=== PATIENT | male | born 1950 | race Caucasian/White ===

== ENCOUNTER 2019-08-22 12:06 | Day surgery (SDC) ==
--- NOTE | 2019-08-22 08:36 | HISTORY AND PHYSICAL ---
HISTORY OF PRESENT ILLNESS: A 68-year-old male, who has had symptoms of BPH for quite some time who came in secondary to advanced rectal cancer. He had abdominal surgery and postoperatively has not been able to void. He has failed several voiding trials. He feels strongly about intervention as the catheter is very bothersome to him. He underwent cystoscopy on 08/19/2019 which revealed significant bilobar prostatic hypertrophy. He wants to proceed with GreenLight transurethral vaporization of prostate. PAST MEDICAL HISTORY: Hypertension, rectal cancer. PAST SURGICAL HISTORY: Diverting loop colostomy, port placement. ALLERGIES: No known drug allergies. HOME MEDICATIONS: Amlodipine, lisinopril, omeprazole, iron. SOCIAL HISTORY: Former alcohol use. Continues to smoke, denies illicit drug use. FAMILY HISTORY: Negative for malignancies. PHYSICAL EXAMINATION: GENERAL: No acute distress. HEENT: Normocephalic, atraumatic. ABDOMEN: Scaphoid nontender. Ileostomy in place. : Hunter catheter in place draining straw-colored urine. ASSESSMENT/PLAN: A 68-year-old male with BPH who is in retention and has failed several voiding trials. He feels strongly about transurethral vaporization of prostate. He was counseled on the risks of the procedure including, but not limited to, bleeding, infection, injury to adjacent structures, persistent postoperative retention, long-term complications such as bladder neck contracture, risk of urinary incontinence, risk of erectile dysfunction, and need for additional interventions were explained. He voiced understanding and wants to proceed. PLAN: GreenLight transurethral vaporization of the prostate. cc: Dano Savage MD
[2019-08-22] MEDS ORDERED: KEFZOL 1 GM/D5W 1 GM/50 ML IVPB ONE (12:39)
[2019-08-22] MEDS ORDERED: LR 1,000 ML ONE (12:39)
--- NOTE | 2019-08-22 12:46 | EKG Report ---
Test Performed on : 08/22/2019 12:28:38 PM Test Reason : preop Blood Pressure : / mmHG Vent. Rate : 076 BPM Atrial Rate : 076 BPM P-R Int : 144 ms QRS Dur : 086 ms QT Int : 370 ms P-R-T Axes : 077 086 066 degrees QTc Int : 416 ms Sinus rhythm. with premature atrial complexes. Otherwise normal ECG No previous ECGs available Confirmed by Yevgeniy Hoang MD ([id number]) on 08/23/2019 10:58:30 AM
[2019-08-22] MEDS ORDERED: DIPRIVAN 1% ONE (13:12)
[2019-08-22] MEDS ORDERED: FENTANYL ONE (13:12)
[2019-08-22] MEDS ORDERED: NS 1,000 ML ONE ×2 (13:15→16:03)
[2019-08-22] MEDS ORDERED: B & O 15A SUPP ONE (13:50)
[2019-08-22] MEDS ORDERED: MORPHINE IV PRN (18:38)
[2019-08-22] MEDS ORDERED: NORCO-10 PO PRN (18:45)
[2019-08-22] MEDS ORDERED: DILAUDID IV PRN (18:45)
[2019-08-22] MEDS ORDERED: PHENERGAN IV PRN (18:45)
[2019-08-22] MEDS ORDERED: LABETALOL IV PRN (18:45)
[2019-08-22] MEDS ORDERED: NORCO-7.5 PO PRN (18:45)
[2019-08-22] MEDS ORDERED: PHENERGAN PO PRN (18:45)
[2019-08-22] MEDS ORDERED: SODIUM CHLORIDE 0.9% INJ PRN (18:45)
[2019-08-22] MEDS ORDERED: NORCO-5 PO PRN (18:45)
[2019-08-22] MEDS ORDERED: ZOFRAN IV PRN (18:45)
[2019-08-22] MEDS ORDERED: PHENERGAN PR PRN (18:45)
[2019-08-22] MEDS: NS 1,000 ML IV SCH (19:20)
[2019-08-22] MEDS: KEFZOL 1 GM/D5W 1 GM/50 ML IVPB IV SCH (21:11)
[2019-08-22] MEDS: PERIDEX MT SCH (21:12)
[2019-08-22] MEDS: COLACE PO SCH (21:12)
[2019-08-23] MEDS: NS 1,000 ML IV SCH (04:00)
[2019-08-23] MEDS: KEFZOL 1 GM/D5W 1 GM/50 ML IVPB IV SCH ×2 (06:11→16:22)
[2019-08-23 07:35] LABS: AGAP 10; BUN 14 mg/dL (8-22); CALCIUM 8.5 mg/dL (8.8-10.2); CHLORIDE 104 mmol/L (98-107); COSMO 281; CREATININE 0.7 mg/dL (0.7-1.2); ESTIMATED GFR > 60; GLUCOSE 125 mg/dL (70-104); POTASSIUM 4.6 mmol/L (3.5-5.1); SODIUM 140 mmol/L (136-145); TCO2 26 mmol/L (25-35)
[2019-08-23 07:36] LABS: HEMATOCRIT 31.7 % (42.0-52.0); HEMOGLOBIN 9.9 g/dL (14.0-18.0); MCH 27.1 PG (27-31); MCHC 31.2 g/dL (33-37); MCV 86.8 FL (81-99); MPV 9.9 FL (7.4-10.4); RBC 3.65 XMIL (4.7-6.1); RDW 14.9 % (11.5-14.5); WBC 23.57 X1000 (4.8-10.8)
[2019-08-23] MEDS: PERIDEX MT SCH (08:12)
[2019-08-23] MEDS: COLACE PO SCH (08:12)
[2019-08-23 11:12] VITALS: BP 99/62
--- NOTE | 2019-08-23 12:04 | PROGRESS NOTE ---
DATE: 08/23/2019 SUBJECTIVE: Mr. Johnson had a good night overnight. He denies pain. His Hunter was removed approximately 4 hours ago, he had not voided yet. OBJECTIVE: Vital signs: T 98.4 degrees, P 134, BP 97/56. General: No acute distress. Abdomen: Tender, distended. : Bladder nontender to palpation. PERTINENT LABS: Hematocrit is 32, creatinine 0.7. ASSESSMENT/PLAN: A 68-year-old male, postop day 1, status post GreenLight transurethral vaporization of prostate who is doing well except for he has not voided yet. I have discussed with the patient that he may have difficulty voiding right after TUVP given occasional postoperative swelling. We also discussed there is a chance he may have a hard time voiding because he had open bowel surgery and may have had a nerve injury to his bladder. He has failed several voiding trials in the past. We discussed that if he is unable to void or has very elevated postvoid residuals, he would benefit from having a Hunter catheter placed and attempt a voiding trial on 08/25/2019. He voiced understanding. PLAN: 1. Discharge home once voids and postvoid residual is acceptable. 2. He will go home with prescriptions for Pyridium and Keflex. 3. I plan to see him in 4 weeks or sooner if there was a problem. cc: Dano Savage MD
--- NOTE | 2019-09-04 12:32 | OPERATIVE NOTE ---
PROCEDURE DATE: 08/22/2019 SURGEON: Dr. Dano Savage. PREOPERATIVE DIAGNOSES: 1. Benign prostatic hypertrophy. 2. Urinary retention. POSTOPERATIVE DIAGNOSES: 1. Benign prostatic hypertrophy. 2. Urinary retention. PROCEDURE NAME: GreenLight transurethral vaporization of the prostate. INDICATIONS: A 68-year-old male who has had a colon surgery and has had urinary retention since. He has tried multiple voiding trials with Flomax and has failed. He underwent cystoscopic evaluation which revealed significant bilobar prostatic hypertrophy with obstruction and presents for definitive intervention with vaporization. He was counseled that his retention could be not just from the prostate but also from possible injury to the bladder nerves from the colon surgery. He voiced understanding and wants to proceed anyway. FINDINGS: Significant bilobar prostatic hypertrophy addressed with 161,474 joules used. Power settings were from 80 up to 140 calderón. Laser time was 20 minutes and 22 seconds. DESCRIPTION OF PROCEDURE: After obtaining informed consent, the patient was brought to the operating room. Perioperative antibiotics and laryngeal mask anesthesia were administered. He was placed in the lithotomy position, prepped and draped in a sterile fashion. A 23-Bulgarian resectoscope was introduced. His prostatic urethra showed significant hypertrophy with obstruction. His bladder showed moderate trabeculations. No mucosal lesions. No evidence of bladder stones and no sizable diverticula noted. I was able to see bilateral ureteral orifices. The GreenLight laser fiber was introduced and we began at 80 calderón. I treated the adenoma from the bladder neck to verumontanum circumferentially x2 passes. We then increased the power to 140 calderón and treated the prostatic adenoma laterally to the level of the verumontanum and bladder neck. At the conclusion of the case, there was excellent transurethral defect and adequate hemostasis. The resectoscope was removed. A 22-Bulgarian, 3 way Hunter catheter was introduced with 30 mL of water instilled in the balloon. It was placed on light traction. It was connected to continuous bladder irrigation. Belladonna and opium suppository was administered by me. He was awakened and taken to the PACU for further recovery. ESTIMATED BLOOD LOSS: 10 mL. COMPLICATIONS: None. DRAINS: A 22-Bulgarian, 3 way Hunter catheter. DISPOSITION: To PACU and subsequently to the floor for observation as the patient requested to spend the night. cc: Dano Savage MD
== END 2019-08-23 16:23 | disposition home or self-care (01) ==
LOC: OR 12:06 → 4N 12:06 → OR 08-23 16:23
PROVIDERS: ATTEND Urology

== ENCOUNTER 2019-08-25 09:12 | Inpatient (IN) ==
[2019-08-25] MEDS ORDERED: TYLENOL PO PRN (13:36)
[2019-08-25] MEDS ORDERED: ZOFRAN IV PRN (13:36)
--- NOTE | 2019-08-25 14:32 | HISTORY AND PHYSICAL ---
PRIMARY CARE PHYSICIAN: None. ONCOLOGIST: Dr. Rios. UROLOGIST: Dr. Savage. CHIEF COMPLAINT: Admitted as a direct admit from oncologist's office today to receive 3 days worth of chemotherapy for advanced rectal cancer. HISTORY OF PRESENTING ILLNESS: This is a 68-year-old male who presents to [facility] as a direct admit from Dr. Rios's office for 3 days of chemotherapy for advanced rectal cancer. It is noted that the patient had a GreenLight transurethral vaporization of the prostate on 08/22/2019, was discharged home with a Hunter catheter. He did his follow-up with Dr. Savage this morning, who removed the Hunter catheter and he has not had any urine output at this time. But he also saw his oncologist and is to start 3 days of successive treatment with chemotherapy for his advanced rectal cancer. PAST MEDICAL HISTORY: Hypertension, rectal cancer, and BPH. PAST SURGICAL HISTORY: A diverting loop colostomy, a port placement, and a GreenLight transurethral vaporization of the prostate. FAMILY HISTORY: Reviewed and noncontributory. SOCIAL HISTORY: He is a former smoker, former drinker of alcohol. Denies any illicit drug use. Lives with family. ALLERGIES: No known drug allergies. HOME MEDICATIONS: A current list will need to be reconciled, reviewed, and restarted as appropriate. We will place an order for nursing to update and confirm home medications. LABORATORY DATA: No new labs at this time. REVIEW OF SYSTEMS: He denied any fever, chills, blurred vision, dizziness, chest pain, coughing, shortness of breath. Denied any abdominal pain, constipation, diarrhea, burning or hurting with urination. PHYSICAL EXAMINATION: VITAL SIGNS: On arrival he had a temperature of 98.2 degrees, pulse 90, respirations 20, blood pressure 126/59. GENERAL: This is a 68-year-old male who is sitting up in the wheelchair and answers questions appropriately. HENT: Normocephalic, atraumatic. Normal ENT inspection. Oropharynx and nares are clear. EYES: Pupils are equal, round, reactive to light and accommodation. Extraocular movements are intact. NECK: Normal inspection. Normal range of motion. LUNGS: Clear to auscultation bilaterally with equal lung expansion and chest wall movement. HEART: Regular rate and rhythm. No murmurs, rubs, or gallops. ABDOMEN: Soft, nontender, nondistended. Bowel sounds are present x4 quadrants. He has his colostomy to the right upper quadrant. MUSCULOSKELETAL: He had 5/5 strength x4 extremities. NEUROLOGICAL: The cranial nerves 2-12 are grossly intact. ASSESSMENT: 1. Advanced rectal cancer. 2. Status post GreenLight transurethral vaporization of prostate on 08/22/2019. 3. Hypertension, history of. PLAN: He was admitted to the medical unit, placed on telemetry, regular diet. I am going to apply SCDs for DVT prophylaxis. We will consult Oncology who will place all the orders for the chemotherapy and we will continue to follow throughout the remainder of his hospitalization. He is to get 3 consecutive days of chemotherapy. Dictated by ALTAGRACIA Trujillo for Shanice Wright MD cc: ALTAGRACIA Trujillo MD Naveen T. Lobo, MD
[2019-08-25] MEDS ORDERED: ZOFRAN 16 MG, DECADRON 10 MG in NS 50 ML IV ONE (15:30)
[2019-08-25] MEDS ORDERED: NS IV ONE ×2 (16:00→17:00)
[2019-08-25] MEDS ORDERED: VEPESID IV ONE (16:00)
[2019-08-25] MEDS ORDERED: PHENERGAN PO PRN (16:32)
[2019-08-25] MEDS ORDERED: REGLAN PO PRN (16:32)
[2019-08-25] MEDS ORDERED: PARAPLATIN IV ONE (17:00)
--- NOTE | 2019-08-25 18:08 | HEMO/ONC CONSULTATION ---
DATE: 08/25/2019 REASON FOR CONSULTATION: Mr. 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 HISTORY OF PRESENT ILLNESS: The patient came into the clinic today for the start of chemotherapy treatment. The patient will be receiving treatment in the hospital. He will stay for 3 days of treatment. He denied any significant pain or change in his medical status since we have seen him last. He is managing his colostomy very well. The patient stated on a Sunday he had a TURP done with Dr. Savage, and had his catheter removed this morning. At the time of our appointment, the patient had not yet urinated. The patient and his states that he has not been eating very much. They admitted this was due to pain. At his last office visit, we discussed pain management with the patient. He was instructed to take his morphine when he gets to pain approximately 5/10. He also has nausea medicines at home. The patient states he has only taken a few of his pain medications occasionally, but they do work when he takes them. He states he is very uncomfortable at his rectum. It is very uncomfortable for him to sit. PAST MEDICAL HISTORY: Hypertension, BPH. PAST SURGICAL HISTORY: Diverting loop colostomy, port placement, and green light transurethral vaporization of the prostate on 07/24/2019. SOCIAL HISTORY: The patient was a smoker prior to his recent hospitalization. Former drinker of alcohol. Denies illicit drug use. ALLERGIES: No known drug allergies. HOME MEDICATIONS: 1. Norvasc. 2. Colace. 3. Ferrous sulfate. 4. Atarax. 5. Hyoscyamine. 6. Lisinopril. 7. Reglan. 8. Morphine IR 15 mg. 9. Multivitamin. 10. Omeprazole. 11. Pyridium. 12. MiraLAX. 13. Phenergan. 14. Flomax. 15. Vitamin B complex. 16. Zinc sulfate. LABORATORY DATA: WBC 17.8, hemoglobin 11.1, hematocrit 34.3, and platelet count 522,000. Sodium 137, potassium 4.4, glucose 137, BUN 10.7, creatinine 0.81, calcium 9.0, total protein 7.0, albumin 3.1, total bilirubin 0.5, alkaline phosphatase 152, AST 20, ALT 14, and CEA 2.1. ASSESSMENT AND PLAN: 1. 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 The patient is going to begin chemotherapy tomorrow with carboplatin and etoposide. We will continue to monitor this. 2. Nausea prophylaxis. The patient should receive the Zofran and Decadron prior to his infusions tomorrow for any potential nausea. He also has p.r.n. nausea medications ordered. 3. Allergy prophylaxis. The patient has Decadron ordered for tomorrow. He should be monitored for any infusional reactions and side effects while receiving chemotherapy. 4. Pain management. The patient has MSIR 15 mg ordered for q.6 hours. The patient is in pain at this time due to the size of his cancer. Please continue around the clock pain management. 5. Constipation. The patient will need MiraLAX and stool softeners daily for constipation. 6. Nutrition and weight loss. The patient has not been eating well, most likely due to inadequate pain control. We are hoping that once his pain is under control he will be able to eat better. Until then, we have ordered protein shakes to be given 3 times a day. He also needs to be drinking an adequate amount of water. I have also ordered Remeron for him to be taken nightly as an appetite stimulant. 7. Status post green light transurethral vaporization of the prostate on 08/22/2019. Dr. Savage may need to follow up with the patient while in the hospital if he has any concerns, or if he is unable to urinate. Please consult him. 8. DVT prophylaxis. The patient will need sequential compression devices for deep venous thrombosis prophylaxis. Please get him up out of the a bed at least 3 times a day. Dictated by ALTAGRACIA Cordon for Aaron Rios MD cc: Aaron Rios MD [facility]
[2019-08-25 20:25] LABS: AGAP 13; ALB/GLOB RATIO 0.8; ALBUMIN 2.8 g/dL (3.5-5.0); ALKALINE PHOSPHATASE 157 U/L (32-122); BUN 16 mg/dL (8-22); CALCIUM 8.7 mg/dL (8.8-10.2); CHLORIDE 100 mmol/L (98-107); COSMO 284; CREATININE 0.8 mg/dL (0.7-1.2); ESTIMATED GFR > 60; GLUCOSE 186 mg/dL (70-104); GOT 22 U/L (10-34); GPT 13 U/L (10-44); POTASSIUM 4.3 mmol/L (3.5-5.1); SODIUM 139 mmol/L (136-145); TCO2 26 mmol/L (25-35); TOTAL BILIRUBIN 0.25 mg/dL (0.20-1.00); TOTAL PROTEIN 6.1 g/dL (6.3-8.3)
[2019-08-25 20:38] LABS: MCH 26.9 PG (27-31); MCHC 31.3 g/dL (33-37); MPV 9.4 FL (7.4-10.4); RBC 3.72 XMIL (4.7-6.1); RDW 14.5 % (11.5-14.5); WBC 18.04 X1000 (4.8-10.8)
[2019-08-25] MEDS: MORPHINE IR PO PRN (20:40)
[2019-08-25] MEDS: REMERON PO SCH (20:40)
[2019-08-25] MEDS: ZINC SULFATE PO SCH (20:40)
[2019-08-25] MEDS: COLACE PO SCH (20:40)
[2019-08-25] MEDS: MIRALAX PO SCH (20:41)
[2019-08-25] MEDS: FLOMAX PO SCH (20:44)
[2019-08-26] MEDS: PRILOSEC PO SCH (06:06)
--- NOTE | 2019-08-26 06:46 | Diag Imaging Result Doc PS360 ---
EXAM: CHEST-1 VIEW HISTORY: dyspnea TECHNIQUE: Single view COMPARISON: None. FINDINGS: The lungs are well expanded. There is a right jugular portacatheter. No pneumothorax. The heart is not enlarged. The vessels are not distended. There are no infiltrates. No effusion identified. IMPRESSION: Negative exam. Electronically signed by Eulogio Weathers 08/26/2019 6:44 AM
[2019-08-26 06:48] LABS: URINE SOURCE CLEAN CATCH
[2019-08-26 07:04] LABS: UR EPITHELIAL CELLS <10 /HPF (<10); URINE BACTERIA NEGATIVE /HPF; URINE RBC TNTC /HPF (<10); URINE WBC TNTC /HPF (<10)
[2019-08-26 07:14] LABS: BILIRUBIN URINE NEGATIVE (NEGATIVE); BLOOD URINE LARGE (NEGATIVE); COLOR ORANGE; GLUCOSE URINE NEGATIVE (NEGATIVE); KETONE URINE NEGATIVE (NEGATIVE); LEUKOCYTES URINE LARGE (NEGATIVE); NITRITE URINE NEGATIVE (NEGATIVE); PH URINE 6.5; PROTEIN URINE 100 mg/dL (NEGATIVE); SP GRAVITY URINE 1.022; TURBIDITY URINE TURBID (CLEAR); UROBILINOGEN URINE NORMAL (NORMAL)
[2019-08-26 07:27] LABS: EOS# 0.01 X1000 (0.0-0.7); EOS% 0.1 % (0.0-10.0); HEMATOCRIT 32.2 % (42.0-52.0); HEMOGLOBIN 9.8 g/dL (14.0-18.0); IMM GRAN# 0.11 X1000 (0.0-0.04); IMM GRAN% 0.8 % (0.0-0.5); LYMPH# 0.88 X1000 (1.2-3.4); LYMPH% 6.3 % (20.5-51.1); MCH 26.3 PG (27-31); MCHC 30.4 g/dL (33-37); MCV 86.6 FL (81-99); MONO# 0.85 X1000 (0.11-0.59); MONO% 6.1 % (1.7-9.3); MPV 9.5 FL (7.4-10.4); NEUT# 12.05 X1000 (1.4-6.5); NEUT% 86.7 % (42.2-75.2); PLT 463 X1000 (130-400); RBC 3.72 XMIL (4.7-6.1); RDW 14.6 % (11.5-14.5)
[2019-08-26 07:45] LABS: LYMPHS 12 % (21-51); MONO 6 % (1-9); SEGS 82 % (42-75)
[2019-08-26 07:51] LABS: AGAP 10; ALB/GLOB RATIO 0.9; ALBUMIN 2.9 g/dL (3.5-5.0); ALKALINE PHOSPHATASE 147 U/L (32-122); BUN 18 mg/dL (8-22); CALCIUM 9.2 mg/dL (8.8-10.2); CHLORIDE 104 mmol/L (98-107); COSMO 286; CREATININE 0.7 mg/dL (0.7-1.2); ESTIMATED GFR > 60; GLUCOSE 149 mg/dL (70-104); GOT 18 U/L (10-34); GPT 13 U/L (10-44); POTASSIUM 5.1 mmol/L (3.5-5.1); SODIUM 141 mmol/L (136-145); TCO2 27 mmol/L (25-35)
[2019-08-26] MEDS ORDERED: PRINIVIL PO SCH (09:00)
[2019-08-26] MEDS: COLACE PO SCH ×2 (09:21→21:42)
[2019-08-26] MEDS: ICAR-C PLUS PO SCH (09:21)
[2019-08-26] MEDS: NORVASC PO SCH (09:21)
[2019-08-26] MEDS: MIRALAX PO SCH ×2 (09:21→21:43)
[2019-08-26] MEDS: FLOMAX PO SCH ×2 (09:21→21:42)
[2019-08-26] MEDS: THERA M PLUS PO SCH (09:21)
[2019-08-26] MEDS: ZINC SULFATE PO SCH ×2 (09:21→21:42)
--- NOTE | 2019-08-26 09:45 | Diag Imaging Result Doc PS360 ---
EXAM: MRI BRAIN W/WO CONTRAST - 08/25/2019 HISTORY: scc r/o mets TECHNIQUE: MRI brain without and with contrast. Images are obtained prior to and following gadolinium administration. COMPARISON: None. FINDINGS: There are scattered signal abnormalities in bilateral white matter and abdirahman compatible with chronic microvascular ischemic changes. The diffusion weighted images show no areas of restricted diffusion (no evidence of acute infarct). There is no evidence of intracranial hemorrhage, mass effect, midline shift, or hydrocephalus. There is no abnormal enhancement identified. IMPRESSION: Chronic microvascular ischemic changes. No visible acute intracranial abnormality. No evidence of metastatic disease to the brain. Electronically signed by Mumtaz Villafuerte 08/26/2019 9:42 AM
[2019-08-26 09:57] LABS: HEMOGLOBIN A1C 5.8 % (4.8-6.0)
[2019-08-26] MEDS: MORPHINE IR PO PRN ×2 (11:14→21:46)
--- NOTE | 2019-08-26 15:12 | PROGRESS NOTE ---
DATE: 08/26/2019 INTERVAL HISTORY: No acute events overnight. SUBJECTIVE: Mr. Johnson denies chest pain, shortness of breath, or cough. He states he recently has quit smoking and I congratulated him for that. He states he is having burning when he passes urine, though he states that the urologist had given him prescription of medications though he has not been able to take the prescription since he has been from one doctor's office to the other and then to the hospital currently. VITAL SIGNS: Currently, temperature of 99.1 degrees, pulse 64, respiratory 14, blood pressure 106/62, he is saturating 100% on room air. PHYSICAL EXAMINATION: General: Cachectic, appears to have severe protein energy malnutrition. Oral cavity is moist. Lungs: Air entry bilaterally equal, though he has decreased lung sounds. No wheeze, rhonchi, or crackles. Cardiovascular: S1, S2 normal. No murmur or gallop. Abdomen: Soft, nontender. He has a lower quadrant ostomy. He has a right-sided chest port. Extremities: No lower extremity edema. Neurologic: He is alert and oriented x3. LABORATORY [place]: [place] [address], hemoglobin 9.8, platelet of 463,000. His BUN is 18, creatinine 0.7. Urine culture is pending. IMAGING: Brain MRI on presentation had chronic microvascular ischemic changes without any acute intracranial pathology or any evidence of metastatic disease. Chest x-ray this morning did not have an acute cardiopulmonary process. ASSESSMENT AND PLAN: 1. Metastatic rectal cancer with suspected liver metastasis. The patient is inside the hospital for inpatient chemotherapy. He is scheduled to receive carboplatin and etoposide this afternoon. I will monitor him inside the hospital. He is also status post colostomy which was created on 08/01/2019. 2. History of benign prostatic hypertrophy and status post GreenLight transurethral vaporization of prostate on August 21. He complains of burning. I will keep him on intravenous ceftriaxone. On presentation, he had pyuria with hematuria. It could be in the setting of acute cystitis. I will tailor antibiotics according to urine culture results. Start him on intravenous ceftriaxone. Continue his home tamsulosin.\ 3. Acute urinary retention: He was not able to void completely and had residual volume close to 500 ml. I will insert Hunter catheter and I will follow up tomorrow. 3. History of essential hypertension. Continue home amlodipine. I am holding lisinopril to prevent acute kidney injury in the setting of use of [place]based chemotherapy at the moment. 4. Tobacco use disorder. Patient recently quit and I congratulated him. We will offer him nicotine patches in the future if required. 5. Others. Continue mirtazapine for appetite stimulation as well as insomnia, intravenous hydromorphone and oral morphine as needed for pain, multivitamin and zinc for appetite stimulation for his severe protein energy malnutrition. DISPOSITION: I will continue to monitor the patient inside the hospital. Plan of care discussed with the patient. His questions have been answered. cc: Negro Jerry MD MTDD
[2019-08-26] MEDS ORDERED: ZOFRAN 16 MG in NS 50 ML IV ONE (15:30)
[2019-08-26] MEDS: ROCEPHIN 1 GM in NS 50 ML IV SCH (15:51)
[2019-08-26] MEDS ORDERED: NS IV ONE (16:00)
[2019-08-26] MEDS ORDERED: VEPESID IV ONE (16:00)
--- NOTE | 2019-08-26 17:06 | HEMO/ONC PROGRESS NOTE ---
DATE: 08/26/2019 SUBJECTIVE: Mr. Johnson was still asleep when I entered this morning. He wakes easily to my voice. He states that he is still tired. He states his first round of therapy went very well. He had no side effects. He denies any nausea, vomiting, or diarrhea. He has no complaints. She states he had a good night. OBJECTIVE: Vital Signs: Temperature 99.1 degrees, pulse rate 64, respiratory rate 14, blood pressure 106/62, O2 saturation 100% on room air. He is in 0/10 pain. General: The patient appears in no acute distress. He does appear malnourished. HEENT: Sclera anicteric. Oral mucosa is normal. PERRLA. Cardiovascular: Normal S1, S2. Heart rate and rhythm regular. Respiratory: Lung sounds are clear bilaterally. Normal respiratory effort. Abdomen: Soft and nontender. Colostomy in place. Extremities: No lower extremity edema noted. Neurological: Alert and oriented x3. No focal motor deficits noted. LABORATORY DATA: WBCs 13.9, hemoglobin 9.8, hematocrit 32.2, platelet count 463,000. Alkaline phosphatase 147, vitamin D 25. RADIOLOGY: Chest x-ray showed negative exam. Brain MRI shows chronic microvascular ischemic changes. No evidence of metastatic disease to the brain. IMPRESSION: 1. 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 The patient began chemotherapy yesterday afternoon with carboplatin and etoposide. He will continue his dosing today. The patient tolerated his dose very well. He denies any symptoms. We will continue to monitor. 2. History of benign prostatic hypertrophy status post GreenLight transurethral vaporization of the prostate on 08/22/2019. He is complaining of dysuria. He is being monitored by hospitalist. His urologist is Dr. Savage, if needed to consult. 3. Nausea prophylaxis. The patient should receive Zofran prior to his infusion for nausea prophylaxis. 4. Allergy prophylaxis. The patient should receive Decadron prior to his infusions. He should be monitored for any infusion reactions and side effects receiving hemotherapy. 5. Pain management. Continue the patient's MSIR 15 mg as needed for pain. 6. Constipation. The patient will need MiraLAX daily as well as stool softeners for opioid- induced constipation, as well as due to the anatomy of his cancer. 7. Nutrition and weight loss. The patient does appear malnourished as he has not been eating well. Continue to provide him protein shakes. He has also been given Remeron during this hospital stay to help stimulate his appetite. 8. Deep venous thrombosis prophylaxis. Keep the patient with sequential compression device. Get him up out of bed at least 3 times a day. Dictated by ALTAGRACIA Cordon for Aaron Rios MD cc: Aaron Rios MD MTDD
[2019-08-26] MEDS: DILAUDID IV PRN (18:12)
[2019-08-26] MEDS: REMERON PO SCH (21:42)
[2019-08-27] MEDS: PRILOSEC PO SCH (06:05)
[2019-08-27 08:07] LABS: BASO# 0.01 X1000 (0.0-0.2); EOS# 0.16 X1000 (0.0-0.7); EOS% 0.8 % (0.0-10.0); HEMATOCRIT 30.7 % (42.0-52.0); HEMOGLOBIN 9.3 g/dL (14.0-18.0); IMM GRAN# 0.08 X1000 (0.0-0.04); IMM GRAN% 0.4 % (0.0-0.5); LYMPH# 2.04 X1000 (1.2-3.4); LYMPH% 10.2 % (20.5-51.1); MCH 26.3 PG (27-31); MCHC 30.3 g/dL (33-37); MPV 9.4 FL (7.4-10.4); NEUT# 16.77 X1000 (1.4-6.5); NEUT% 83.6 % (42.2-75.2); PLT 492 X1000 (130-400); RBC 3.53 XMIL (4.7-6.1); RDW 14.7 % (11.5-14.5); WBC 20.06 X1000 (4.8-10.8)
[2019-08-27 08:18] LABS: LYMPHS 16 % (21-51); MONO 4 % (1-9); SEGS 80 % (42-75)
[2019-08-27] MEDS: FLOMAX PO SCH ×2 (08:56→21:17)
[2019-08-27] MEDS: ZINC SULFATE PO SCH ×2 (08:56→21:17)
[2019-08-27] MEDS: MIRALAX PO SCH ×2 (08:56→21:18)
[2019-08-27] MEDS: THERA M PLUS PO SCH (08:56)
[2019-08-27] MEDS: ICAR-C PLUS PO SCH (08:56)
[2019-08-27] MEDS: COLACE PO SCH ×2 (08:56→21:17)
[2019-08-27] MEDS: NORVASC PO SCH (08:56)
[2019-08-27] MEDS: MORPHINE IR PO PRN ×3 (09:04→21:18)
--- NOTE | 2019-08-27 13:25 | HEMO/ONC PROGRESS NOTE ---
DATE: 08/27/2019 SUBJECTIVE: Mr. Johnson was asleep this morning upon my entering his room. He woke easily to my voice. He stated that last night's chemotherapy went very well. He states that he had some issues with gas. He had some abdominal gas pains which made its way to his colostomy bag and blew it up. He had a burp it several times during the night which disturbed his sleep. He denies any other problems. He denies nausea or diarrhea. He has no complaints this morning. He will have his 3rd round of chemotherapy started this afternoon. OBJECTIVE: Vital Signs: Temperature 98.5 degrees, pulse rate 65, respiratory rate 12, blood pressure 123/68, O2 saturation 98% on room air. He is in 3/10 rectal pain. PHYSICAL EXAMINATION: General: The patient looks cachectic but in no acute distress. Cardiovascular: Normal S1, S2. Heart rate and rhythm are regular. Respiratory: Lung sounds are clear to auscultation. Normal respiratory effort. Gastrointestinal: Abdomen is soft and nontender. Colostomy bag intact. Extremities: No lower extremity edema noted. Neurological: Alert and oriented x3. No focal motor deficits noted. LABORATORY DATA: WBCs 20.06, hemoglobin 9.3, hematocrit 30.7, platelet count 492,000. ASSESSMENT AND PLAN: 1. Metastatic small-cell carcinoma of the rectum. The patient has had his first 2 days of chemotherapy with carboplatin, and etoposide. He has denied any significant side effects. He did have some gas last night which has resolved today. He is tolerating his dosing very well. We will continue to monitor. He will have his 3rd dose of chemotherapy started tonight. We will most likely discharge him after that. 2. History of benign prostatic hypertrophy, status post GreenLight transurethral vaporization of the prostate on 08/22/2019. He will need Dr. Savage if he has any complaints. 3. Nausea prophylaxis. The patient should be receiving Zofran prior to his infusions for any potential nausea. 4. Allergy prophylaxis. Patient should be receiving Decadron prior to his infusion. He will be also monitored for any infusional reactions and side effects while receiving chemotherapy. 5. Pain management. Continue the patient's MSIR 15 mg as needed for pain. 6. Constipation. Continue the patient on MiraLAX daily as well as stool softeners. 7. Nutrition and weight loss. The patient has not been eating very much due to his pain. Continue nutrition while he is the hospital. Provide him with protein shakes. He has also been given Remeron, which she states today is helping him feel more hungry. 8. Deep venous thrombosis prophylaxis. Keep the patient on sequential compression devices and get him up out of bed at least 3 times a day. Dictated by ALTAGRACIA Cordon for Aaron Rios MD cc: Aaron Rios MD [facility]
[2019-08-27] MEDS: ROCEPHIN 1 GM in NS 50 ML IV SCH (14:55)
[2019-08-27] MEDS ORDERED: ZOFRAN 16 MG in NS 50 ML IV ONE (15:30)
[2019-08-27] MEDS ORDERED: VEPESID IV ONE (16:00)
[2019-08-27] MEDS ORDERED: NS IV ONE (16:00)
--- NOTE | 2019-08-27 18:42 | PROGRESS NOTE ---
DATE: 08/27/2019 INTERVAL HISTORY: No acute events overnight. His vitals have been unremarkable. He continues to have leukocytosis. SUBJECTIVE: He denies any chest pain, or shortness of breath. He was not able to void yesterday and urine catheter was placed. He complains of poor oral intake and decreased appetite. He denies noticing any blood in the urine. OBJECTIVE: Vital Signs: Temperature 99.3 degrees, pulse 73, respiratory 14, blood pressure 127/73 and saturating 95% room air. General: Mr. Johnson is not in acute distress. HEENT: Oral cavity is moist. Lungs: Air entry bilaterally equal. No wheeze, rhonchi or crackles. He does have generalized decreased air entry. Cardiovascular: S1, S2 normal. No murmur, rub, or gallop. Abdomen: Soft and nontender. He has lower quadrant ostomy with yellowish output. He has a right- sided chest port. Extremities: He does not have lower extremity edema. Pelvic: He has urine catheter. Neurologic: He is alert and oriented x3. LABORATORY: [place] [address], hemoglobin 9.3, and platelet of 492,000. No electrolytes today. No positive microbiological data. No new imaging. ASSESSMENT AND PLAN: 1. Metastatic rectal cancer with suspected liver metastasis. Today is day 3 of carboplatin and etoposide chemotherapy. He is status post colostomy created on 12/29. 2. History of benign prostatic hypertrophy, status post GreenLight transurethral vaporization of prostate on 08/21. He had dysuria and suspected acute cystitis so he was started on intravenous ceftriaxone. However, urine culture has been negative. I will stop antibiotics. 3. Acute urinary retention. Continue home tamsulosin, and give him a voiding trial. 4. History of essential hypertension. Continue home amlodipine, and will resume lisinopril at the time of discharge. 5. Tobacco use disorder. Patient recently quit. DISPOSITION: I will consider discharging the patient. He was able to void by himself. Plan of care discussed with him. He is in agreement with it. cc: Negro Jerry MD
[2019-08-27] MEDS: REMERON PO SCH (21:17)
[2019-08-28 00:15] LABS: URINE SOURCE CATH
[2019-08-28 00:21] LABS: BILIRUBIN URINE NEGATIVE (NEGATIVE); BLOOD URINE MODERATE (NEGATIVE); COLOR YELLOW; GLUCOSE URINE NEGATIVE (NEGATIVE); KETONE URINE NEGATIVE (NEGATIVE); LEUKOCYTES URINE SMALL (NEGATIVE); NITRITE URINE NEGATIVE (NEGATIVE); PH URINE 6.5; PROTEIN URINE TRACE mg/dL (NEGATIVE); TURBIDITY URINE CLEAR (CLEAR); UR EPITHELIAL CELLS <10 /HPF (<10); URINE BACTERIA NEGATIVE /HPF; URINE RBC 20-40 /HPF (<10); UROBILINOGEN URINE NORMAL (NORMAL)
[2019-08-28] MEDS: PRILOSEC PO SCH (06:48)
[2019-08-28] MEDS: MORPHINE IR PO PRN ×2 (06:48→16:24)
[2019-08-28] MEDS: MIRALAX PO SCH (08:48)
[2019-08-28] MEDS: THERA M PLUS PO SCH (08:48)
[2019-08-28] MEDS: ICAR-C PLUS PO SCH (08:48)
[2019-08-28] MEDS: COLACE PO SCH (08:48)
[2019-08-28] MEDS: FLOMAX PO SCH (08:48)
[2019-08-28] MEDS: ZINC SULFATE PO SCH (08:48)
[2019-08-28] MEDS: NORVASC PO SCH (10:39)
[2019-08-28] MEDS: DILAUDID IV PRN (12:47)
[2019-08-28 16:09] VITALS: BP 108/62
--- NOTE | 2019-08-28 19:38 | DISCHARGE SUMMARY ---
ADMISSION DATE: 08/25/2019 DISCHARGE DATE: 08/28/2019 DISCHARGE DISPOSITION: Home. DISCHARGE CONDITION: Hemodynamically stable. The patient has urine retention and is requiring Hunter catheter. He was provided 2 options as per my discussion with urologist, Dr. Savage. Option 1 was to take the Hunter catheter out and teach him intermittent self catheterization and have outpatient urology followup, which he was uncomfortable with, so we decided to go ahead with the option 2 which was to keep the indwelling Hunter catheter until he sees a urologist outpatient. DISCHARGE DIAGNOSES: 1. Metastatic rectal cancer with suspected liver metastasis. 2. History of benign prostatic hypertrophy, status post GreenLight transurethral vaporization of prostate on 08/22/2019. 3. Acute urinary retention. OTHER DIAGNOSES: 1. History of essential hypertension. 2. History of tobacco abuse. 3. History of benign prostatic hypertrophy, status post transurethral vaporization. 4. History of diverting loop transverse colostomy. 5. History of right-sided chest port placement. DISCHARGE MEDICATIONS: 1. Hydroxyzine 25 mg at nighttime. 2. Metoclopramide 10 mg every 6 hours as needed. 3. Docusate 100 mg b.i.d. 4. Ferrous sulfate 325 mg daily. 5. Levsin 0.125 mg every 6 hours as needed for spasm and abdominal cramps. 6. Lisinopril 40 mg daily. 7. Morphine immediate release 50 mg every 6 hours as needed for pain. 8. Amlodipine 10 mg daily. 9. Multivitamin 1 tablet daily. 10. Phenergan 25 mg every 6 hours as needed for nausea and vomiting. 11. Omeprazole 40 mg daily. 12. Vitamin B complex 1 tablet daily. 13. Lidocaine 2% jelly 1 application as needed. 14. Zinc sulfate 220 mg b.i.d. 15. Tamsulosin 0.4 mg b.i.d. 16. MiraLAX 17 g b.i.d. 17. Burr 7.5 one tablet every 6 hours as needed. 18. Phenazopyridine t.i.d. as needed. 19. Number current. 20. Mirtazapine 15 mg qHS VITALS: Temperature 98.2 degrees, pulse 79, respiratory 18, blood pressure 108/62 saturating 99% room air. PHYSICAL EXAMINATION: Cachectic with severe protein energy malnutrition, not in acute distress oral cavity is moist. Lungs: Air entry bilaterally equal. No wheeze, rhonchi, crackles. Cardiovascular: S1, S2 normal. No gallop. Right-sided chest port. Abdomen: Soft. Lower quadrant colostomy with yellowish stool output. Active bowel sounds. Extremity: Edema he is alert and oriented x3. LABS: At the time of discharge WBC 20449, hemoglobin 9.3, platelet 492,000. Potassium 5.1, sodium 141, BUN 18, creatinine 0.7 microbiology urine culture did not have any growth. IMAGING: During hospital admission. Brain MRI had chronic microvascular ischemic changes without any visible acute intracranial abnormality or without any evidence of metastatic disease to the brain next chest x-ray did not have any acute cardiopulmonary process next. HOSPITAL COURSE SUMMARY: Mr. 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 Metastatic carcinoma of the rectum with suspected lesion in her metastatic small cell carcinoma, metastatic carcinoma of the rectum who presented as a direct admission from Oncology office for need for chemotherapy on 08/25/2019. He received chemotherapy of intravenous carboplatin and etoposide for 3 days without any adverse events. However, during hospital stay, he developed urine retention. The patient had recently underwent GreenLight transurethral vaporization of prostate on 08/22/2019 for his benign prostatic hypertrophy and post procedure he did have a Hunter catheter. However, prior to current admission, his Hunter catheter was removed while inside the hospital. The patient developed urine retention with residuals more than 400 mL so urine catheter was placed and he was given a voiding trial the next day. However, he retained more than 500 mL, so another urine catheter was placed and Urology was consulted. However, the evaluation is pending. I did talk with the urologist myself on the phone and we discussed about management of his urine retention. The plan was to keep him on his tamsulosin. The patient was offered teaching for intermittent self catheterization. However, patient was uncomfortable and so it was decided to keep the Hunter catheter. TIME OF SERVICE: And have him follow up with urologist as an outpatient. Thirty minutes were spent in discharging this patient. Plan of care was extensively discussed with Mr. Johnson. All of his questions and his questions were satisfactorily answered. cc: Negro Jerry MD [facility]US[facility]
== END 2019-08-28 19:17 | disposition home or self-care (01) | DRG 846 ==
LOC: SUATTDRO 09:12 → DIRADM 09:12 → 3N 12:33
PROVIDERS: ATTEND Internal Medicine

== ENCOUNTER 2019-09-15 11:04 | Inpatient (IN) ==
--- NOTE | 2019-09-15 13:56 | HISTORY AND PHYSICAL ---
PRIMARY CARE PHYSICIAN: None. ONCOLOGIST: Dr. Rios REASON FOR ADMISSION: Three-day chemotherapy. HISTORY OF PRESENT ILLNESS: Mr. Johnson is a 68-year-old male with a past medical history of metastatic rectal cancer with suspected liver metastasis, BPH status post GreenLight transurethral vaporization of the prostate on 08/22/2019. He was a direct admit from Dr. Rios's office for 3 days of chemotherapy. The patient is currently denying any symptoms or complaints. PAST MEDICAL HISTORY: 1. Metastatic rectal cancer with suspected liver metastasis. 2. BPH. 3. Urinary retention. 4. Essential hypertension. PAST SURGICAL HISTORY: Diverting loop colostomy, port placement, GreenLight transurethral vaporization of prostate. SOCIAL HISTORY: Past smoker, former drinker of alcohol. Denies illicit drug use. ALLERGIES: No known drug allergies. HOME MEDICATIONS: Being compiled. LABORATORY DATA: Ordered. DIAGNOSTIC DATA: None. REVIEW OF SYSTEMS: The patient denies fever, chills, cough, headache, sore throat, nausea, vomiting, diarrhea, constipation, chest pain, shortness of breath, dizziness. ASSESSMENT AND PLAN: 1. Metastatic small-cell carcinoma of the rectum. The patient will begin his 3 days of chemotherapy under the direction of Dr. Rios and will continue home medications when compiled. 2. Benign prostatic hypertrophy with recent GreenLight transurethral vaporization of the prostate on 08/22/2019, followed by Dr. Savage. 3. History of tobacco abuse. 4. History of alcohol use. Further recommendations to follow physician evaluation, laboratory and diagnostic data. Dictated by ALTAGRACIA Mendoza for Negro Jerry MD cc: Negro Jerry MD I agree with most components of history, physical, assessment and plan. A separate addendum has been dictated. [facility]
[2019-09-15] MEDS ORDERED: ZOFRAN 16 MG, DECADRON 10 MG in NS 50 ML IV ONE (14:00)
[2019-09-15] MEDS ORDERED: VEPESID IV ONE (14:20)
[2019-09-15] MEDS ORDERED: NS IV ONE ×2 (14:20→15:20)
[2019-09-15 15:10] LABS: BASO% 0.7 % (0.0-0.8); EOS# 0.07 X1000 (0.0-0.7); EOS% 0.5 % (0.0-10.0); HEMATOCRIT 30.5 % (42.0-52.0); HEMOGLOBIN 9.2 g/dL (14.0-18.0); IMM GRAN# 0.29 X1000 (0.0-0.04); IMM GRAN% 2.1 % (0.0-0.5); LYMPH# 1.73 X1000 (1.2-3.4); LYMPH% 12.2 % (20.5-51.1); MCH 26.4 PG (27-31); MCHC 30.2 g/dL (33-37); MCV 87.4 FL (81-99); MONO# 1.28 X1000 (0.11-0.59); MONO% 9.1 % (1.7-9.3); MPV 8.8 FL (7.4-10.4); NEUT# 10.66 X1000 (1.4-6.5); NEUT% 75.4 % (42.2-75.2); PLT 567 X1000 (130-400); RBC 3.49 XMIL (4.7-6.1); RDW 15.3 % (11.5-14.5); WBC 14.13 X1000 (4.8-10.8)
[2019-09-15] MEDS ORDERED: PARAPLATIN IV ONE (15:20)
[2019-09-15 15:50] LABS: AGAP 14; ALBUMIN 2.9 g/dL (3.5-5.0); ALKALINE PHOSPHATASE 120 U/L (32-122); BUN 24 mg/dL (8-22); CALCIUM 8.8 mg/dL (8.8-10.2); CHLORIDE 102 mmol/L (98-107); COSMO 290; CREATININE 0.9 mg/dL (0.7-1.2); ESTIMATED GFR > 60; GLUCOSE 114 mg/dL (70-104); GOT 18 U/L (10-34); GPT 13 U/L (10-44); POTASSIUM 4.6 mmol/L (3.5-5.1); SODIUM 143 mmol/L (136-145); TCO2 27 mmol/L (25-35); TOTAL PROTEIN 5.9 g/dL (6.3-8.3)
--- NOTE | 2019-09-15 15:51 | HEMO/ONC CONSULTATION ---
DATE: 09/15/2019 REASON FOR CONSULTATION: Mr. 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 HISTORY OF PRESENT ILLNESS: The patient is being admitted to the Hospitalist service for a 3 day treatment of chemotherapy. The patient has had 1 cycle of carboplatin and etoposide approximately 3 weeks ago. He did very well. He denied any side effects. He denied nausea, abdominal pain, diarrhea, or constipation. The patient states his pain is relatively well controlled. Sometimes it gets uncomfortable at his bottom, especially if he has to sit for a while. The patient denies any complaints today. He feels well. He has been social isolating. PAST MEDICAL HISTORY: Hypertension and BPH. PAST SURGICAL HISTORY: Diverting loop colostomy, port placement, and GreenLight transurethral vaporization of the prostate on 08/13/2019. SOCIAL HISTORY: The patient was a smoker prior to his hospitalization in August. Former drinker of alcohol. Denies illicit drug use. ALLERGIES: No known drug allergies. HOME MEDICATIONS: Norvasc, Colace, ferrous sulfate, Atarax, hyoscyamine, lisinopril, Reglan, morphine IR 15, multivitamin, omeprazole, Pyridium, MiraLAX, Phenergan, Flomax, vitamin B complex, zinc sulfate. REVIEW OF SYSTEMS: The patient denies any findings. Negative review of systems. VITAL SIGNS: Temperature 97.9 degrees, pulse rate 72, respiratory rate 20, blood pressure 119/71, O2 saturation 98% on room air. He is in 0/10 pain. PHYSICAL EXAMINATION: General: The patient is in no acute distress. HEENT: Sclerae anicteric. PERRLA. Oral mucosa is normal. Cardiovascular: Normal S1, S2. Heart rate and rhythm regular. Respiratory: Lung sounds are clear to auscultation. Normal respiratory effort. Gastrointestinal: Abdomen is soft, nontender, nondistended. Bowel sounds are present. Extremities: No evidence of lower extremity edema. Lymphatic: No lymphadenopathy noted. Neurological: Alert and oriented x3. No motor focal deficits noted. Normal gait. LABORATORY: WBCs 14.13, hemoglobin 9.2, hematocrit 30.5, platelet count 567,000. Sodium 135, potassium 4.6, creatinine 0.81, alkaline phosphatase 144. ASSESSMENT AND PLAN: 1. 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 The patient will begin 3 days of chemotherapy with carboplatin and etoposide. We will continue to monitor throughout his stay. 2. Nausea prophylaxis. The patient will receive a small dose of Zofran and Decadron prior to his infusions for any potential nausea. He also has p.r.n. nausea medications as ordered. 3. Allergy prophylaxis. The patient will receive a small dose of Decadron prior to his infusion for any potential allergic reaction. He should be monitored for any infusional reactions and side effects while receiving chemotherapy. 4. Pain management. The patient is on home MSIR 15 mg q.6 hours as needed for pain. Please continue the same as needed. 5. Constipation. The patient will need MiraLAX and stool softeners daily for constipation. 6. Nutrition and weight loss. The patient continues to be underweight. He has a BMI of 16.2, although he states he has a decent appetite. Continue to give him a regular diet. Provide him protein shakes with every meal and snack as needed. 7. Deep venous thrombosis prophylaxis. The patient will need sequential compression devices for deep venous thrombosis prophylaxis. He will also need to be encouraged to get out of bed at least 3 times a day. Dictated by ALTAGRACIA Cordon for Aaron Rios MD cc: Aaron Rios MD [facility]
[2019-09-15 15:52] LABS: TOTAL BILIRUBIN < 0.15 mg/dL (0.20-1.00)
[2019-09-15] MEDS ORDERED: NS 500 ML ONE (16:02)
[2019-09-15] MEDS ORDERED: NS 500 ML IV ONE (16:17)
[2019-09-15] MEDS ORDERED: BENADRYL ONE (16:23)
[2019-09-15] MEDS ORDERED: SOLU-MEDROL ONE (16:24)
[2019-09-15] MEDS ORDERED: PEPCID ONE (16:24)
[2019-09-15] MEDS ORDERED: BENADRYL IV ONE (16:34)
[2019-09-15] MEDS ORDERED: SODIUM CHLORIDE 0.9% INJ ONE (16:34)
[2019-09-15] MEDS ORDERED: PEPCID IV ONE (16:34)
[2019-09-15] MEDS ORDERED: SOLU-MEDROL IV ONE (16:34)
[2019-09-15] MEDS ORDERED: PHENERGAN PO PRN (16:36)
[2019-09-15] MEDS: MIRALAX PO SCH (20:21)
[2019-09-15] MEDS: COLACE PO SCH (20:22)
[2019-09-15] MEDS: FLOMAX PO SCH (20:22)
[2019-09-15] MEDS: ZINC SULFATE PO SCH (20:22)
[2019-09-15] MEDS: REMERON PO SCH (20:28)
--- NOTE | 2019-09-15 20:44 | HISTORY AND PHYSICAL ---
ADDENDUM: INTERVAL HISTORY: This is an addendum to history and physical dictated by the nurse practitioner. I agree with most components of history, physical, assessment, and plan. In brief, Mr. Johnson is a 68-year-old man with history of metastatic rectal cancer with suspected liver metastases, history of benign prostatic hypertrophy, status post GreenLight transurethral vaporization of prostate in August of 2019, essential hypertension, tobacco abuse, who is admitted directly by oncologist team for inpatient chemotherapy. The patient received a dose of etoposide and carboplatin this afternoon. SUBJECTIVE: Mr. Johnson denies chest pain, shortness of breath, nausea, vomiting, abdominal pain. He is complaining of some mucoid discharge from the rectum, though he still has a colostomy. OBJECTIVE: Vital signs: Temperature 97.9 degrees, pulse 84, respiratory rate 18, blood pressure 92/60, saturating 96% on room air. General: Not in acute distress. HEENT: Oral cavity is moist. Air entry bilaterally equal. No wheeze or crackles. Cardiovascular: S1, S2 normal. No murmur or gallop. Abdomen: Soft, nontender. He has a lower quadrant ostomy. He has a right- sided chest port. Extremities: No lower extremity edema. Neurologic: He is alert and oriented x3. LABORATORY DATA: WBC of 14,000, hemoglobin 9.2, platelet 567,000. BUN 24, creatinine 0.9. ASSESSMENT: 1. Metastatic rectal cancer. 2. History of benign prostatic hypertrophy, status post GreenLight transurethral vaporization of prostate on August 21. 3. History of essential hypertension. PLAN: Patient will receive chemotherapy under guidance of oncologist. I will continue his home medication of mirtazapine for appetite stimulation, ferrous sulfate for normocytic anemia, morphine immediate release for chronic pain and tamsulosin for urinary retention. I will keep him on MiraLAX for constipation as well. I advised him to contact his surgeon outpatient if he has any issues with his ostomy. Currently he only complains of mild mucus discharge from the rectum, and I explained to him that this could be normal after colostomy procedure. cc: Negro Jerry MD
[2019-09-16 06:47] LABS: BASO# 0.01 X1000 (0.0-0.2); BASO% 0.1 % (0.0-0.8); HEMATOCRIT 30.9 % (42.0-52.0); HEMOGLOBIN 9.3 g/dL (14.0-18.0); IMM GRAN# 0.13 X1000 (0.0-0.04); LYMPH# 0.72 X1000 (1.2-3.4); LYMPH% 5.7 % (20.5-51.1); MCH 26.2 PG (27-31); MCHC 30.1 g/dL (33-37); MONO# 0.27 X1000 (0.11-0.59); MONO% 2.1 % (1.7-9.3); MPV 8.9 FL (7.4-10.4); NEUT% 91.1 % (42.2-75.2); PLT 552 X1000 (130-400); RBC 3.55 XMIL (4.7-6.1); RDW 15.5 % (11.5-14.5); WBC 12.73 X1000 (4.8-10.8)
[2019-09-16] MEDS: REMERON PO SCH ×2 (07:19→21:37)
[2019-09-16 07:25] LABS: BANDS 4 % (0-1); HYPOCHROM 1+; LYMPHS 2 % (21-51); POIKILOCYTOSIS 1+; SEGS 94 % (42-75)
[2019-09-16 07:34] LABS: AGAP 13; BUN 26 mg/dL (8-22); CALCIUM 8.7 mg/dL (8.8-10.2); CHLORIDE 107 mmol/L (98-107); COSMO 295; CREATININE 0.8 mg/dL (0.7-1.2); ESTIMATED GFR > 60; GLUCOSE 192 mg/dL (70-104); POTASSIUM 4.8 mmol/L (3.5-5.1); SODIUM 143 mmol/L (136-145); TCO2 23 mmol/L (25-35)
[2019-09-16] MEDS: ZINC SULFATE PO SCH ×2 (09:22→21:37)
[2019-09-16] MEDS: MIRALAX PO SCH ×2 (09:22→21:36)
[2019-09-16] MEDS: FERROUS SULFATE PO SCH (09:22)
[2019-09-16] MEDS: FLOMAX PO SCH ×2 (09:22→21:37)
[2019-09-16] MEDS: MORPHINE IR PO PRN (09:22)
[2019-09-16] MEDS: COLACE PO SCH ×2 (09:23→21:37)
[2019-09-16] MEDS ORDERED: BENADRYL IV ONE (14:57)
[2019-09-16] MEDS ORDERED: DECADRON IV ONE (14:57)
[2019-09-16] MEDS ORDERED: ZOFRAN 16 MG in NS 50 ML IV ONE (15:00)
[2019-09-16] MEDS ORDERED: NS IV ONE (15:20)
[2019-09-16] MEDS ORDERED: VEPESID IV ONE (15:20)
[2019-09-16] MEDS: ANUSOL-HC CREAM PR SCH ×2 (19:30→21:39)
--- NOTE | 2019-09-16 20:03 | PROGRESS NOTE ---
DATE: 09/16/2019 SUBJECTIVE: The patient is resting comfortably. He complains of rectal pain and some mucus-like discharge when he goes to the restroom. OBJECTIVE: Vital Signs: Temperature 98.8 degrees, blood pressure 103/61, heart rate 85, respirations 20, O2 saturation is 96% on room air. General: This is a chronically ill-appearing elderly male sitting up in bed in no acute distress. Heart: S1, S2 normal. Regular rate and rhythm. Lungs: Clear to auscultation bilaterally. No wheezes. No rales. No rhonchi. Abdomen: Positive bowel sounds. Soft, nontender, nondistended. Extremities: No edema, no cyanosis, no calf tenderness. Neurologic: The patient is alert and oriented x3. LABORATORY DATA: White blood cell count is 12, hemoglobin is 9.3, hematocrit is 30, platelet count is 552,000. Sodium 143, potassium 4.8, chloride 107, CO2 is 23, BUN is 26, creatinine is 0.8, glucose 192. ASSESSMENT AND PLAN: 1. 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 The patient is currently receiving chemotherapy as an inpatient. Further management as per Dr. Rios. 2. Rectal pain. We will order Anusol cream. 3. Constipation. Continue with scheduled laxative therapy. 4. Steroid-induced hyperglycemia. We will monitor the blood sugars closely. 5. DVT prophylaxis. Continue with SCDs. cc: Shanice Wright MD
[2019-09-17 07:21] LABS: HEMATOCRIT 27.2 % (42.0-52.0); HEMOGLOBIN 8.4 g/dL (14.0-18.0); MCH 27.4 PG (27-31); MCHC 30.9 g/dL (33-37); MCV 88.6 FL (81-99); MPV 9.2 FL (7.4-10.4); RBC 3.07 XMIL (4.7-6.1); RDW 15.5 % (11.5-14.5); WBC 24.07 X1000 (4.8-10.8)
[2019-09-17 07:23] LABS: AGAP 11; BUN 30 mg/dL (8-22); CALCIUM 8.2 mg/dL (8.8-10.2); CHLORIDE 107 mmol/L (98-107); COSMO 289; CREATININE 0.8 mg/dL (0.7-1.2); ESTIMATED GFR > 60; GLUCOSE 129 mg/dL (70-104); POTASSIUM 4.9 mmol/L (3.5-5.1); SODIUM 141 mmol/L (136-145); TCO2 23 mmol/L (25-35)
--- NOTE | 2019-09-17 08:19 | Diag Imaging Result Doc PS360 ---
EXAM: CHEST-1 VIEW INDICATION: Dyspnea TECHNIQUE: One view COMPARISON: 08/26/2019 FINDINGS: Right chest port is in stable position. The lungs are grossly clear. There is no discrete pleural fluid collection or pneumothorax. The cardiomediastinal silhouette and central vasculature are grossly unremarkable. IMPRESSION: No evidence of acute pathology by plain radiograph. Electronically signed by Chris Steiner 09/17/2019 8:17 AM
[2019-09-17] MEDS: MORPHINE IR PO PRN ×2 (09:26→16:57)
[2019-09-17] MEDS: FERROUS SULFATE PO SCH (09:27)
[2019-09-17] MEDS: FLOMAX PO SCH (09:27)
[2019-09-17] MEDS: MIRALAX PO SCH (09:27)
[2019-09-17] MEDS: ZINC SULFATE PO SCH (09:27)
[2019-09-17] MEDS: ANUSOL-HC CREAM PR SCH (09:27)
[2019-09-17] MEDS: COLACE PO SCH (09:27)
[2019-09-17 09:37] LABS: HEMOGLOBIN A1C 5.7 % (4.8-6.0)
[2019-09-17] MEDS ORDERED: SODIUM CHLORIDE 0.9% INJ ONE (09:46)
[2019-09-17] MEDS ORDERED: PEPCID IV ONE (09:46)
[2019-09-17] MEDS ORDERED: BENADRYL IV ONE (09:46)
--- NOTE | 2019-09-17 10:15 | HEMO/ONC PROGRESS NOTE ---
DATE: 09/17/2019 SUBJECTIVE: Mr. Johnson is doing very well this morning. He denies any complaints. He denies any side effects from his chemotherapy. He denies pain. On his first day of chemotherapy, he had an infusional reactions to etoposide with some abdominal pain and cramping. It was stopped. He was given Solu-Medrol, Benadryl and Decadron, and the infusion was restarted at a slower rate 30 minutes later without complication. Yesterday, he was given Benadryl and Decadron as premedications. He had no problem. The patient is aware he will be discharged home after his chemotherapy today. There is no need to keep him overnight. He will return home with his until his next office visit. OBJECTIVE: Vital Signs: Temperature 98.4 degrees, pulse rate 73, blood pressure 116/52, O2 saturation 98% on room air, 0/10 pain. PHYSICAL EXAMINATION: General: Patient is in no acute distress. HEENT: PERRLA. Oral mucosa is normal. Sclerae is anicteric. Cardiovascular: Normal S1, S2. Heart rate and rhythm are regular. Respiratory: Lung sounds are clear to auscultation. Normal respiratory effort. Extremities: No lower extremity edema noted. Neurological: Alert and oriented x3. No focal motor deficits noted. LABORATORY: WBCs 24.07, hemoglobin 8.4, hematocrit 27.2, platelet count 493,000. Sodium 141, potassium 4.9. IMAGING: Chest x-ray this morning shows no evidence of acute pathology. ASSESSMENT AND PLAN: 1. Metastatic small cell carcinoma to the rectum. The patient will have his third dose of chemotherapy today with etoposide. This will complete his 3 day regimen of chemotherapy. He will continue dosing every 3 weeks. We will continue to monitor his CBCs weekly. He should be discharged after his last dose this afternoon. We will follow up with him next week in the office for a lab check. 2. Nausea prophylaxis. The patient will receive a small dose of Zofran prior to his infusions for any potential nausea. He also has p.r.n. medications ordered and at home as needed. 3. Allergy prophylaxis. The patient will receive a small dose of Benadryl and Pepcid prior to his infusions for any potential allergic reaction. He should be monitored for any infusional reactions and side effects while receiving chemotherapy. I am withholding the Decadron today as it did raise his sugar yesterday. The patient is not a known diabetic. 4. Pain management. The patient does have occasional pain in his rectum due to the size of his cancer. Please medicate as appropriately. 5. Constipation. Also due to the obstruction of his cancer, he will need to remain on MiraLAX and stool softeners daily. 6. Nutrition and weight loss. The patient continues to be underweight with a low body mass index of 16.2. Continue to give a regular diet and provide him with several protein shakes with every meal and nighttime snack. 7. Deep vein thrombosis prophylaxis. The patient needs sequential compression devices, as well as getting out of bed as often as he can. There is no need for the patient to lie in bed. He can receive his chemotherapy in a recliner if available. Dictated by ALTAGRACIA Cordon for Aaron Rios MD cc: Aaron Rios MD
[2019-09-17 11:53] LABS: URINE SOURCE CLEAN CATCH
[2019-09-17 12:03] LABS: BILIRUBIN URINE NEGATIVE (NEGATIVE); BLOOD URINE SMALL (NEGATIVE); COLOR YELLOW; GLUCOSE URINE NEGATIVE (NEGATIVE); KETONE URINE NEGATIVE (NEGATIVE); LEUKOCYTES URINE LARGE (NEGATIVE); NITRITE URINE NEGATIVE (NEGATIVE); PH URINE 6.5; PROTEIN URINE TRACE mg/dL (NEGATIVE); SP GRAVITY URINE 1.025; TURBIDITY URINE HAZY (CLEAR); UROBILINOGEN URINE NORMAL (NORMAL)
[2019-09-17 12:28] LABS: UR EPITHELIAL CELLS <10 /HPF (<10); URINE BACTERIA NEGATIVE /HPF; URINE WBC TNTC /HPF (<10)
[2019-09-17 12:45] LABS: URINE CASTS NONE SEEN; URINE CRYSTALS NONE SEEN; URINE SMALL ROUND CELLS NONE SEEN; URINE YEAST NONE SEEN
[2019-09-17] MEDS: ZOFRAN 16 MG in NS 50 ML IV ONE ×2 (13:53→16:57)
[2019-09-17] MEDS ORDERED: VEPESID IV ONE (15:20)
[2019-09-17] MEDS ORDERED: NS IV ONE (15:20)
[2019-09-17 16:25] VITALS: BP 109/66
== END 2019-09-17 17:16 | disposition home or self-care (01) | DRG 847 ==
LOC: DIRADM 11:04 → SUATTDRO 11:04 → 3N 12:02
PROVIDERS: ATTEND Internal Medicine

== ENCOUNTER 2019-10-06 10:55 | Inpatient (IN) ==
[~2019-10-06 10:55] MED LIST: NS IV ONE; VEPESID IV ONE
[2019-10-06] MEDS ORDERED: ZOFRAN IV PRN (11:49)
[2019-10-06] MEDS ORDERED: TYLENOL PO PRN (11:49)
[2019-10-06] MEDS ORDERED: NS IV ONE ×4 (12:00→17:00)
[2019-10-06] MEDS ORDERED: BENADRYL IV ONE ×2 (12:00→16:30)
[2019-10-06] MEDS ORDERED: ZOFRAN 16 MG, DECADRON 10 MG in NS 50 ML IV ONE (12:30)
--- NOTE | 2019-10-06 12:42 | EKG Report ---
Test Performed on : 10/06/2019 12:20:37 PM Test Reason : rythm eval Blood Pressure : / mmHG Vent. Rate : 075 BPM Atrial Rate : 070 BPM P-R Int : 000 ms QRS Dur : 078 ms QT Int : 374 ms P-R-T Axes : 000 081 060 degrees QTc Int : 417 ms Atrial fibrillation. Abnormal ECG When compared with ECG of 22-AUG-2019 12:28, Atrial fibrillation. has replaced Sinus rhythm. ST elevation now present in Inferior leads Unconfirmed Result
[2019-10-06 12:46] LABS: BASO# 0.05 X1000 (0.0-0.2); BASO% 0.3 % (0.0-0.8); EOS# 0.06 X1000 (0.0-0.7); EOS% 0.4 % (0.0-10.0); HEMATOCRIT 29.4 % (42.0-52.0); HEMOGLOBIN 9.1 g/dL (14.0-18.0); IMM GRAN# 0.28 X1000 (0.0-0.04); IMM GRAN% 1.9 % (0.0-0.5); LYMPH# 1.47 X1000 (1.2-3.4); LYMPH% 9.9 % (20.5-51.1); MCH 26.5 PG (27-31); MCV 85.7 FL (81-99); MONO# 1.37 X1000 (0.11-0.59); MONO% 9.2 % (1.7-9.3); MPV 9.8 FL (7.4-10.4); NEUT% 78.3 % (42.2-75.2); PLT 251 X1000 (130-400); RBC 3.43 XMIL (4.7-6.1); RDW 15.8 % (11.5-14.5); WBC 14.83 X1000 (4.8-10.8)
[2019-10-06 12:53] LABS: INR 1.09; PROTIME 14.2 Seconds (11.0-16.0)
[2019-10-06 12:54] LABS: PTT 38.6 Seconds (22.3-41.8)
[2019-10-06] MEDS ORDERED: VEPESID IV ONE (13:00)
[2019-10-06 13:17] LABS: AGAP 12; ALB/GLOB RATIO 0.8; ALBUMIN 2.9 g/dL (3.5-5.0); ALKALINE PHOSPHATASE 141 U/L (32-122); BUN 16 mg/dL (8-22); CALCIUM 9.1 mg/dL (8.8-10.2); CHLORIDE 100 mmol/L (98-107); COSMO 278; CREATININE 0.7 mg/dL (0.7-1.2); ESTIMATED GFR > 60; GLUCOSE 119 mg/dL (70-104); GOT 33 U/L (10-34); GPT 36 U/L (10-44); MAGNESIUM 1.9 mg/dL (1.5-2.7); POTASSIUM 3.5 mmol/L (3.5-5.1); SODIUM 138 mmol/L (136-145); TCO2 26 mmol/L (25-35); TOTAL BILIRUBIN < 0.15 mg/dL (0.20-1.00); TOTAL PROTEIN 6.7 g/dL (6.3-8.3)
--- NOTE | 2019-10-06 13:22 | Diag Imaging Result Doc PS360 ---
EXAM: CHEST-2 VIEWS 10/06/2019 HISTORY: rule out pna TECHNIQUE: PA and lateral chest COMMENT: The appearance the chest has not changed significantly since the previous study of 09/17/2019. IMPRESSION: Stable chest. Electronically signed by Perico Cazares 10/06/2019 1:20 PM
[2019-10-06] MEDS ORDERED: PARAPLATIN IV ONE ×2 (14:00→17:00)
--- NOTE | 2019-10-06 15:02 | HEMO/ONC CONSULTATION ---
DATE: 10/06/2019 REASON FOR CONSULTATION: Mr. 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 HISTORY OF PRESENT ILLNESS: The patient is admitted today to the Hospitalist service for a three- day treatment of chemotherapy. This will be the patient's third cycle of treatment. He has done very well with his prior cycles. Last cycle the patient did have a reaction of smothering chest pressure with etoposide. He was given Benadryl and was able to continue to have his treatment. The patient has otherwise had no side effects. He states he did not feel bad after being discharged. He denies chest pain, shortness of breath, abdominal pain, diarrhea, constipation, or any fevers. Other than being hospitalized, the patient has been isolating at home. The patient states he feels his disease is improving. He states his pain is lessening at his rectum. The patient also states that he is having an increase in mucus and water from his rectum. He has a followup appointment this Sunday with Dr. Mayer. The patient states his pain is relatively well controlled. He tells me on a bad day he has three to four morphine pills. On a good day he will take one. The patient's next restaging CT scan will be due in October. The patient complains of sinus congestion due to allergies. I have given him prescription for Zyrtec at this time. The patient's treatments will continue every three weeks. PAST MEDICAL HISTORY: Hypertension and BPH. PAST SURGICAL HISTORY: Diverting loop colostomy, port placement, and GreenLight transurethral vaporization of the prostate in July 2019. SOCIAL HISTORY: The patient was a prior smoker. He quit smoking in August 2019. Former drinker of alcohol. Denies illicit drug use. ALLERGIES: No known drug allergies. HOME MEDICATIONS: Norvasc, ferrous sulfate, Atarax, hyoscyamine, lisinopril, Reglan, morphine IR 15, multivitamin, omeprazole, MiraLAX, Phenergan, Flomax, vitamin B complex, zinc sulfate, Remeron, and Zyrtec. REVIEW OF SYSTEMS: The patient complains of sinus congestion. Increased mucus and water from rectal stump. Otherwise, patient has no complaints. All other review of systems are negative. PHYSICAL EXAMINATION: Vital Signs: Temperature 98.3, pulse rate 102, blood pressure 94/59. General: The patient is in no acute distress. HEENT: Sclerae anicteric. PERRLA. Oral mucosa is normal. Cardiovascular: Normal S1, S2. Heart rate and rhythm regular. Respiratory: Lung sounds are clear to auscultation. Normal respiratory effort. Gastrointestinal: Abdomen is soft, nontender, nondistended. Bowel sounds are present. Extremities: No evidence of lower extremity edema noted. Lymphatic: No lymphadenopathy noted. Neurological: Alert and oriented x3. No focal motor deficits noted. Normal gait. The patient is very hard of hearing. LABORATORY: WBC is 14.83, hemoglobin 9.1, hematocrit 29.4, platelet count 251,000. Sodium 138, potassium 3.5. CEA pending. IMAGING: Chest x-ray shows stable chest with no acute disease. ASSESSMENT AND PLAN: 1. 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 The patient will begin three days of chemotherapy with carboplatin and etoposide. We will continue to monitor throughout his stay. 2. Nausea prophylaxis. The patient will receive a small dose of Zofran and Decadron prior to his infusions for any potential nausea. 3. Allergy prophylaxis. The patient will receive a small dose of Benadryl prior to his infusions for any potential allergic reaction. He should be monitored for any infusional reactions and side effects while receiving chemotherapy. 4. Pain management. Continue the patient's home morphine sulfate IR 15 mg every six hours as needed for pain. The patient's pain has improved since his last visit. 5. Constipation. The patient may need to continue to need MiraLAX and stool softeners daily for constipation. He states this has been improving. 6. Nutrition and weight loss. The patient continues to be underweight, although he tells me he does feel stronger today. He has a body mass index of 16. He requested more Remeron. He states this helps improve his appetite. Continue to give him a regular diet. Provide him with protein shakes with every meal and snacks as needed. 7. Deep venous thrombosis prophylaxis. The patient should have on sequential compression devices. He is also encouraged to get out of bed and do his exercises while in the hospital. 8. Sinus congestion and rhinorrhea. We will place the patient on Zyrtec. We will continue to monitor. Dictated by ALTAGRACIA Cordon for Aaron Rios MD cc: Aaron Rios MD [facility]
--- NOTE | 2019-10-06 15:56 | HISTORY AND PHYSICAL ---
ADDENDUM REPORT This is a 68-year-old male with small cell carcinoma of the rectum, status post colostomy, who is here for scheduled chemotherapy with carboplatin and etoposide per Dr. Rios. He has been admitted for that. The only thing unusual he had a bit of ectopy on his telemetry, but it looks like he had some PACs. He is a little bit anemic, and we will continue to monitor those numbers. Dr. Rios will follow along with us and continue to monitor closely. cc: Jake Sexton MD
--- NOTE | 2019-10-06 16:05 | HISTORY AND PHYSICAL ---
PRIMARY CARE PROVIDER: No one. PRIMARY ONCOLOGIST: Dr. Rios. REASON FOR ADMISSION: Three day chemotherapy treatment. HISTORY OF PRESENT ILLNESS: Mr. Naresh Johnson is a 68-year-old, male with a medical history of rectal cancer with suspected liver metastasis. He also has a history of BPH with urinary retention. He has had a colectomy and has a colostomy bag. He also had a history of hypertension but that has since resolved over the last 3 months. He is now here without any complaints at all. He denies any urinary complications or bowel complications. He states that he is actually feeling good. He denies fever. No pain. PAST MEDICAL HISTORY: 1. Metastatic rectal cancer with suspected liver metastasis. 2. BPH. 3. Urinary retention, resolved. 4. Essential hypertension, resolved. SURGICAL HISTORY: 1. Diverting loop colostomy with cholecystectomy. 2. Right chest port placement. 3. GreenLight transurethral vaporization of prostate. SOCIAL HISTORY: He was a 2 pack per day smoker up until several months ago. Now he smokes around 2 cigarettes per week because his continues to smoke. He denies alcohol or illicit drug use. Lives at home with his . Has no issues with ambulation. FAMILY HISTORY: Mother had diabetes. Father had a brain aneurysm and he was in his 60s with that. ALLERGIES: No known drug allergies. HOME MEDICATIONS: Currently being reconciled. REVIEW OF SYSTEMS: Fourteen point review of systems are complete and all were negative except for those mentioned above in the HPI. PHYSICAL EXAMINATION: VITAL SIGNS: Vital signs are not yet recorded. GENERAL: Mr. Naresh Johnson is a 68-year-old, male. He is a little bit anorexic or emaciated. He is in no acute distress. He is able answer questions appropriately. HEENT: Atraumatic, normocephalic. Pupils equal, round, reactive to light. Extraocular movements intact. Mucous membranes are dry. NECK: Trachea midline. CARDIOVASCULAR: S1, S2. Regular rate and rhythm. No rubs, gallops, murmurs. No lower extremity edema. There are +2 dorsalis and radial pulses. Negative for JVD or carotid bruits. PULMONARY: Clear to auscultate bilateral breath sounds. No accessory muscle use or work of breathing noted. GASTROINTESTINAL: Soft, nontender, nondistended. Positive bowel sounds x4. Colostomy site dry and intact without any signs or symptoms of infection. EXTREMITIES: Moves all extremities equally with decreased range of motion. NEUROLOGIC: A and O x3. Follows commands. Sensory is intact. SKIN: Warm, dry, intact. LABORATORY DATA: None yet. IMAGING: None yet. ASSESSMENT AND PLAN: 1. Metastatic rectal cancer with suspected liver metastasis. Currently has received chemotherapy. This, I believe, will be his third round which will require a 3 day stay. He currently has etoposide and carboplatin ordered. He has a right chest port for access. All labs are currently pending. 2. Benign prostatic hypertrophy with urinary retention and recent GreenLight transurethral vaporization of the prostate. Currently denies any symptoms of urinary retention. 3. Remote history of essential hypertension but that has since resolved over the last few months. 4. Deep venous thrombosis prophylaxis with sequential compression devices. 5. Tobacco abuse. He still continues to smoke around 2 cigarettes a week, according to him. Cessation discussed. Dictated by ALTAGRACIA Montalvo for Jake Sexton MD cc: ALTAGRACIA Montalvo MD
[2019-10-06] MEDS: MORPHINE IR PO PRN (17:21)
[2019-10-06 17:41] LABS: URINE SOURCE CLEAN CATCH
[2019-10-06 17:53] LABS: BILIRUBIN URINE NEGATIVE (NEGATIVE); BLOOD URINE MODERATE (NEGATIVE); COLOR YELLOW; GLUCOSE URINE NEGATIVE (NEGATIVE); KETONE URINE TRACE mg/dL (NEGATIVE); LEUKOCYTES URINE LARGE (NEGATIVE); NITRITE URINE NEGATIVE (NEGATIVE); PROTEIN URINE 100 mg/dL (NEGATIVE); TURBIDITY URINE TURBID (CLEAR); UROBILINOGEN URINE NORMAL (NORMAL)
[2019-10-06 17:58] LABS: UR EPITHELIAL CELLS <10 /HPF (<10); URINE BACTERIA 2+ /HPF; URINE WBC TNTC /HPF (<10)
[2019-10-06 17:59] LABS: URINE CASTS NONE SEEN; URINE CRYSTALS CA OXALATE PRESENT; URINE SMALL ROUND CELLS NONE SEEN; URINE YEAST NONE SEEN
[2019-10-06] MEDS: ZYRTEC PO SCH (20:48)
[2019-10-06] MEDS: REMERON PO SCH (20:49)
[2019-10-07] MEDS: LOVENOX SUBQ SCH (06:39)
[2019-10-07 07:51] LABS: BASO# 0.01 X1000 (0.0-0.2); BASO% 0.1 % (0.0-0.8); HEMATOCRIT 28.3 % (42.0-52.0); HEMOGLOBIN 8.6 g/dL (14.0-18.0); IMM GRAN# 0.18 X1000 (0.0-0.04); IMM GRAN% 1.4 % (0.0-0.5); LYMPH# 0.83 X1000 (1.2-3.4); LYMPH% 6.5 % (20.5-51.1); MCH 26.2 PG (27-31); MCHC 30.4 g/dL (33-37); MCV 86.3 FL (81-99); MONO# 0.51 X1000 (0.11-0.59); MPV 10.5 FL (7.4-10.4); NEUT# 11.31 X1000 (1.4-6.5); PLT 181 X1000 (130-400); RBC 3.28 XMIL (4.7-6.1); RDW 15.8 % (11.5-14.5); WBC 12.84 X1000 (4.8-10.8)
[2019-10-07 07:57] LABS: AGAP 11; ALBUMIN 2.8 g/dL (3.5-5.0); ALKALINE PHOSPHATASE 132 U/L (32-122); BUN 16 mg/dL (8-22); CALCIUM 8.6 mg/dL (8.8-10.2); CHLORIDE 105 mmol/L (98-107); COSMO 281; CREATININE 0.7 mg/dL (0.7-1.2); ESTIMATED GFR > 60; GLUCOSE 147 mg/dL (70-104); GOT 20 U/L (10-34); GPT 26 U/L (10-44); MAGNESIUM 1.9 mg/dL (1.5-2.7); POTASSIUM 4.3 mmol/L (3.5-5.1); SODIUM 139 mmol/L (136-145); TCO2 23 mmol/L (25-35); TOTAL BILIRUBIN 0.16 mg/dL (0.20-1.00); TOTAL PROTEIN 5.7 g/dL (6.3-8.3)
[2019-10-07] MEDS: MIRALAX PO SCH ×2 (09:42→20:30)
[2019-10-07] MEDS: COLACE PO SCH ×2 (09:43→20:30)
[2019-10-07] MEDS: FLOMAX PO SCH ×2 (09:43→20:30)
[2019-10-07 09:44] LABS: BANDS 2 % (0-1); LYMPHS 10 % (21-51); MONO 4 % (1-9); SEGS 84 % (42-75)
[2019-10-07] MEDS: MORPHINE IR PO PRN (09:47)
[2019-10-07] MEDS: ZINC SULFATE PO SCH ×2 (09:49→20:30)
--- NOTE | 2019-10-07 11:14 | HEMO/ONC PROGRESS NOTE ---
DATE: 10/07/2019 SUBJECTIVE: Mr. Johnson is awake and alert this morning, sitting up in bed, eating his breakfast. He states his chemo went very well last night. He had no complications or reactions. His appetite continues to do well. He denies any nausea, abdominal pain, fever, or diarrhea. He states he is feeling very well. He denies any complaints. He had a good night's sleep. OBJECTIVE: Vital Signs: Temperature 97.6 degrees, pulse rate 105, respiratory rate 16, blood pressure 95/59, O2 saturation 96% on room air. He is in 0/10 pain. General: The patient is in no acute distress. Cardiovascular: Heart rate and rhythm is regular. Respiratory: Normal respiratory effort. Sounds clear to auscultation. Gastrointestinal: Abdomen is soft, nontender, nondistended. Bowel sounds are present. Extremities: No lower extremity edema noted. Neurological: Alert and oriented x3. Patient hard of hearing. LABORATORY DATA: WBCs 12.84, hemoglobin 8.6, hematocrit 28.3, platelet count 191,000. ASSESSMENT AND PLAN: 1. Metastatic small-cell carcinoma of the rectum. The patient will proceed with his second day of his 3-day round of inpatient chemotherapy. The patient will receive etoposide today. He had no complications with his first dose last night. We will continue to monitor throughout his stay. 2. Nausea prophylaxis. The patient will receive a small dose of Zofran and Decadron prior to his infusions for any potential nausea. 3. Allergy prophylaxis. The patient will receive a small dose of Benadryl prior to his infusions on all 3 days for any potential allergic reactions. He should be monitored for any infusional reactions and side effects while receiving chemotherapy. 4. Pain management. Continue the patient's home morphine sulfate IR 15 mg every 6 hours as needed for pain. His pain has continued to improve as the chemotherapy is improving his cancer. 5. Constipation. The patient needs to continue MiraLAX and stool softeners daily for constipation. 6. Nutrition and weight loss. The patient continues to be underweight. The patient has a good appetite. He remains on Remeron. He is being provided regular diet as well as protein shakes 4 times a day. 7. Deep venous thrombosis prophylaxis. The patient should have on sequential compression devices. He is encouraged to get out of bed and do exercises while in the hospital. Dictated by ALTAGRACIA Cordon for Aaron Rios MD cc: Aaron Rios MD
[2019-10-07] MEDS ORDERED: NS IV SCH (14:00)
[2019-10-07] MEDS ORDERED: VEPESID IV SCH (14:00)
[2019-10-07] MEDS ORDERED: MYLICON DROPS PO PRN (14:07)
--- NOTE | 2019-10-07 14:32 | PROGRESS NOTE ---
DATE: 10/07/2019 SUBJECTIVE: Patient has no major complaints. OBJECTIVE: Vital Signs: Blood pressure 96/61, heart rate 71, respiratory rate 19, temperature 97.9 degrees and 99% on room air. Cardiovascular: Regular rate and rhythm. Pulmonary: Bilateral breath sounds. Clear to auscultation. GI: Soft. Nontender and nondistended. Bowel sounds are positive. LABORATORY DATA: White count 12, hemoglobin and hematocrit 8 and 28, and platelets 181,000. Basic looked fine. UA does look like there is pyuria, but he is not specifically complaining about it. PROBLEM LIST: Metastatic rectal cancer with liver METS. He is getting inpatient chemo with etoposide and carboplatin per Heme-Onc. They are going to continue to follow. He is complaining of gas pain and poor p.o. intake. He is on Remeron. May need to consider Marinol or something to that effect. I have ordered some simethicone. I will give him some Marinol as well, and we will see how he does. DISPOSITION: Pending his clinical status, but anticipate discharge tomorrow after his chemo treatment. cc: Jake Sexton MD
[2019-10-07] MEDS: BENADRYL IV SCH (14:39)
[2019-10-07] MEDS: NS IV SCH (14:39)
[2019-10-07] MEDS: MARINOL PO SCH (15:05)
[2019-10-07] MEDS: ZOFRAN 16 MG in NS 50 ML IV SCH (15:14)
[2019-10-07] MEDS: REMERON PO SCH (20:30)
[2019-10-07] MEDS: ZYRTEC PO SCH (20:30)
[2019-10-08] MEDS: LOVENOX SUBQ SCH (06:23)
[2019-10-08 07:44] LABS: BASO# 0.03 X1000 (0.0-0.2); BASO% 0.2 % (0.0-0.8); EOS# 0.06 X1000 (0.0-0.7); EOS% 0.4 % (0.0-10.0); HEMATOCRIT 28.9 % (42.0-52.0); HEMOGLOBIN 8.7 g/dL (14.0-18.0); IMM GRAN# 0.14 X1000 (0.0-0.04); IMM GRAN% 0.8 % (0.0-0.5); LYMPH# 1.13 X1000 (1.2-3.4); LYMPH% 6.6 % (20.5-51.1); MCH 25.9 PG (27-31); MCHC 30.1 g/dL (33-37); MONO# 0.89 X1000 (0.11-0.59); MONO% 5.2 % (1.7-9.3); MPV 10.7 FL (7.4-10.4); NEUT# 14.85 X1000 (1.4-6.5); NEUT% 86.8 % (42.2-75.2); PLT 117 X1000 (130-400); RBC 3.36 XMIL (4.7-6.1)
[2019-10-08 08:05] LABS: AGAP 11; ALB/GLOB RATIO 0.8; ALBUMIN 2.6 g/dL (3.5-5.0); ALKALINE PHOSPHATASE 126 U/L (32-122); BUN 19 mg/dL (8-22); CALCIUM 8.5 mg/dL (8.8-10.2); CHLORIDE 106 mmol/L (98-107); COSMO 283; CREATININE 0.7 mg/dL (0.7-1.2); ESTIMATED GFR > 60; GLUCOSE 93 mg/dL (70-104); GOT 25 U/L (10-34); GPT 28 U/L (10-44); MAGNESIUM 1.9 mg/dL (1.5-2.7); POTASSIUM 4.1 mmol/L (3.5-5.1); SODIUM 141 mmol/L (136-145); TCO2 24 mmol/L (25-35); TOTAL BILIRUBIN < 0.15 mg/dL (0.20-1.00)
[2019-10-08 08:07] LABS: BANDS 2 % (0-1); LYMPHS 2 % (21-51); MONO 4 % (1-9); SEGS 92 % (42-75)
[2019-10-08 08:08] LABS: HYPOCHROM 1+
[2019-10-08] MEDS: MIRALAX PO SCH (08:15)
[2019-10-08] MEDS: FLOMAX PO SCH (08:16)
[2019-10-08] MEDS: COLACE PO SCH (08:16)
[2019-10-08] MEDS: MARINOL PO SCH (08:16)
[2019-10-08] MEDS: ZINC SULFATE PO SCH (08:16)
--- NOTE | 2019-10-08 13:03 | HEMO/ONC PROGRESS NOTE ---
DATE: 10/08/2019 SUBJECTIVE: Mr. Johnson is awake, sitting up in bed this morning. He has not eaten much of his breakfast. He states he just feels very full. He tells me that after his chemotherapy with etoposide last night, he had some nausea. It was relieved with nausea medications. I suggested he request his nausea medications this morning. The patient's treatment otherwise went very well. The patient denies any significant pain. He had a good night's sleep. OBJECTIVE: Vital Signs: Temperature 98.6 degrees, pulse rate 68, respiratory rate 17, blood pressure 125/77, O2 saturation 96% on room air. PHYSICAL EXAMINATION: General: The patient appears in no acute distress. Cardiovascular: Heart rate and rhythm is regular. Respiratory: Normal respiratory effort. Gastrointestinal: Abdomen is soft, nontender, nondistended. Colostomy bag empty. Bowel sounds are present. Extremities: No lower extremity edema noted. Neurological: Alert and oriented x3. The patient is hard of hearing. LABORATORY DATA: WBCs 17.10, hemoglobin 8.7, hematocrit 28.9, platelet count 117,000. Patient's urine culture came back with gram-positive cocci. ASSESSMENT AND PLAN: 1. Metastatic small-cell carcinoma of the rectum. The patient will proceed with day 3 of his inpatient chemotherapy with etoposide. He did not have any reaction. However, he was nauseated afterwards he states. Please monitor his nausea today. He does have nausea medicines at home to use as needed. We will continue to monitor him. He should be discharged after his treatment today. 2. Nausea prophylaxis. The patient will receive a small dose of Zofran and Decadron prior to his infusions for any potential nausea. He has p.r.n. nausea medicines to use at home. 3. Allergy prophylaxis. The patient will receive a small dose of Benadryl prior to his infusions for any potential reactions. He should be monitored for any infusional reactions and side effects while receiving chemotherapy. 4. Pain management. Continue the patient's home medication as needed for pain. His pain is mostly controlled at this time. 5. Constipation. Continue the patient's MiraLAX and stool softeners as needed. 6. Nutrition and weight loss. The patient continues to be underweight. He has had a good appetite. However, he states this morning he feels full. He did have some nausea after last night's treatment. He has been started on Marinol by the Hospitalist. We will see if that improves his appetite. 7. Deep venous thrombosis prophylaxis. He is on Lovenox. Encourage the patient to get out of bed. He should be continuing his exercises while he is in the hospital. 8. Urinary tract infection. The patient's urinalysis was concerning. His culture shows gram- positive cocci. Treatment per Hospitalist appreciated. 9. Rectal discharge. The patient states yesterday that he had an increased amount of rectal discharge. He is following up with Dr. Mayer on Sunday. Dictated by ALTAGRACIA Cordon for Aaron Rios MD cc: Aaron Rios MD [facility]
[2019-10-08] MEDS ORDERED: NS IV SCH (14:00)
[2019-10-08] MEDS ORDERED: VEPESID IV SCH (14:00)
[2019-10-08] MEDS: ZOFRAN 16 MG in NS 50 ML IV SCH (14:48)
[2019-10-08] MEDS: NS IV SCH (15:19)
[2019-10-08] MEDS: BENADRYL IV SCH (15:19)
[2019-10-08 16:23] VITALS: BP 121/78
--- NOTE | 2019-10-08 16:50 | DISCHARGE SUMMARY ---
ADMISSION DATE: 10/06/2019 DISCHARGE DATE: 10/08/2019 DISCHARGE DIAGNOSES: 1. Rectal cancer which is metastatic, small cell. 2. Protein calorie malnutrition. This is a 68-year-old admitted for scheduled chemotherapy per Dr. Rios. CONSULTATIONS: Dr. Rios. He was admitted. He received his scheduled carboplatin and etoposide. On the , he was felt stable for discharge. He was given Benadryl. He was encouraged. He is on Remeron. I would consider adding another nutritional supplement, either Megace or Marinol. In any case, he was felt stable for discharge. DISCHARGE MEDS: 1. Atarax 25 at bedtime. 2. Reglan 10 q.6. 3. Colace 100 b.i.d. 4. Iron 325 daily. 5. Levsin 0.125 q.6 p.r.n. spasms. 6. Morphine sulfate immediate release 15 q.6 p.r.n. pain. 7. Phenergan 25 q.6 p.r.n. nausea. 8. Lidocaine jelly as needed. 9. Remeron 15 at bedtime. 10. Hydrocortisone/Anusol HC p.r. 11. Flomax 0.4 b.i.d. 12. MiraLAX 17 b.i.d. 13. Pyridium 100 t.i.d. 14. Zinc sulfate. 15. We will go ahead and start Marinol 2.5. He has finished Keflex; he is not going to go out on any antibiotics. DISCHARGE CONDITION: Stable. This is a patient of Dr. Rios. cc: MD Aaron Cavazos MD Dr. Harney
== END 2019-10-08 17:55 | disposition home or self-care (01) | DRG 846 ==
LOC: LAB 10:55 → SUATTDRO 10:57 → DIRADM 10:57 → 3N 11:06
PROVIDERS: ATTEND Internal Medicine